=== PATIENT | female | born 2005 | race Caucasian/White ===

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

== ENCOUNTER 2024-05-05 05:39 | Emergency (ER) | payer BC, SELFPAY ==
[2024-05-05 05:58] VITALS: BP 129/75; PULSE 92; RESP 18; TEMP 37.1; O2SAT 99; BMI 27.3
--- NOTE | 2024-05-05 06:12 | DI.RAD.S_ITS ---
PROCEDURE: XR CHEST 2V INDICATIONS: coughing up blood TECHNIQUE: 2 views of the chest were acquired. COMPARISON: None. FINDINGS: Surgical changes and devices: None. Lungs and pleura: Lungs are clear. No pleural effusions or pneumothorax. Mediastinum: Mediastinal contours are normal. Heart size is normal. Bones and chest wall: No suspicious bony abnormalities. Soft tissues appear unremarkable. IMPRESSION: No acute cardiopulmonary abnormality is seen. Agree with preliminary report. Dictated by: Jacob Araya M.D. on 05/05/2024 at 8:20 Approved by: Jacob Araya M.D. on 05/05/2024 at 8:21
[2024-05-05 06:47] VITALS: BP 117/70; PULSE 85; O2SAT 100
[2024-05-05 07:00] VITALS: PULSE 85; O2SAT 100
[2024-05-05 07:30] VITALS: PULSE 81; O2SAT 100
--- NOTE | 2024-05-05 07:33 | PC.NURSE ---
Pt states she was recently in contact with someone who was sick; pt endorses coughing up blood starting last night. Pt endorses vocal cord irritation and post nasal drip.
--- NOTE | 2024-05-05 07:40 | ED_ITS ---
HPI - General Adult General Chief complaint: Shortness of Breath/Dyspnea Stated complaint: coughing up blood Time Seen by Provider: 05/05/24 07:39 Source: patient Mode of arrival: Ambulatory Limitations: no limitations History of Present Illness HPI narrative: This is a 18-year-old female with no reported medical issues who presents with complaint of 5 days of hoarseness, cough and has developed some hemoptysis. Patient describes least 2 episodes and has pictures that show phlegm with some blood mixed in. Patient denies any fevers states he has had little bit of a headache, states has had a pretty persistent cough. No epistaxis. Has a little bit tight in her chest. No chest pain currently. Little bit of shortness of breath. No nausea or vomiting. No syncope. No diarrhea or constipation. No swelling in extremities. Patient states no daily medications. Had tonsillectomy in the last year. No use of tobacco. Patient used inhalers in the past, has had prednisone in the past states she does feel little wheezy. Related Data Home Medications Medication Instructions Recorded Confirmed norethindrone 1 mg-ethinyl 1 tab PO DAILY 04/13/19 04/13/19 estradiol 10 mcg (24)-iron 10 mcg(2) tablet (Lo Loestrin Fe) Previous Rx's Medication Instructions Recorded famotidine 40 mg tablet (Pepcid) 40 mg OR QDAY ##5 09/30/17 albuterol sulfate 90 mcg/actuation 2 puff INH Q4HP PRN #1 ea 11/18/17 aerosol inhaler (Ventolin HFA) amoxicillin 500 mg capsule 500 mg PO BID #20 caps 04/13/19 ondansetron 4 mg disintegrating 4 mg PO Q8H PRN nausea and 07/29/22 tablet vomiting #30 tabs prednisone 10 mg tablets in a dose See Rx Instructions PO .COMPLEX 05/05/24 pack #21 ea Allergies Allergy/AdvReac Type Severity Reaction Status Date / Time No Known Drug Allergies Allergy Verified 04/13/19 12:28 Review of Systems Review of Systems ROS Unobtainable: All systems reviewed & are unremarkable except as noted in HPI and below Patient History Medical History Asthma Social History Smoking Status: Never smoker Smoking Status: Never smoker Substance Use Type: does not use Exam Narrative Exam Narrative: GEN: well nourished, well appearing female, alert and oriented x 3, patient appears to be in mild distress. HEENT: Atraumatic, pupils are equal round reactive to light, extraocular movements are intact, nares mild rhinorrhea, TMs are clear with no fluid, there is no conjunctival pallor. Throat is clear with cobblestoning, no exudates, erythema, tonsillar enlargement or uvular deviation, mild cervical lymphadenopathy. Patient sounds congested. Mild hoarseness. No muffled voice. No difficulty with swallowing her secretions. HEART: Regular rate and rhythm without murmur, clicks, rubs. LUNGS:Lungs clear to auscultation, no wheezes, rales, crackles, chest moves symmetrically, no tachypnea or accessory muscle use ABD:bowel sounds normal, soft, non-tender, no guarding, rebound, rigidity, no masses noted, no hepatosplenomegaly :No CVA tenderness MSCL: Non-tender, no muscle atrophy, muscles strength 5/5 upper and lower extremities, full range of motion, normal gait NEURO:CN 2-12 intact, sensation normal. SKIN: No rash, erythema or other skin changes. Initial Vital Signs Initial Vital Signs: Vital Signs Temperature 98.7 F 05/05/24 05:58 Pulse Rate 92 H 05/05/24 05:58 Respiratory Rate 18 05/05/24 05:58 Blood Pressure 129/75 05/05/24 05:58 Pulse Oximetry 99 05/05/24 05:58 Oxygen Delivery Method Room Air 05/05/24 05:58 Course Orders Ordered: ED Orders 05/05/24 06:12 Chest [XR chest 2V] Stat Vital Signs Vital signs: Vital Signs - 8 hr 05/05/24 05:58 05/05/24 06:47 05/05/24 06:47 Temperature 98.7 F Pulse Rate 92 H 85 Respiratory Rate 18 Blood Pressure 129/75 117/70 Pulse Oximetry 99 100 Oxygen Delivery Method Room Air 05/05/24 07:00 Temperature Pulse Rate 85 Respiratory Rate Blood Pressure Pulse Oximetry 100 Oxygen Delivery Method Medical Decision Making Imaging Data Chest x-ray: Radiologist's Impression: Prelim night read no acute cardiopulmonary disease, normal lung volumes, lungs are clear no pneumothorax or pleural effusion heart size normal no passive venous congestion, no midline shift or tracheal deviation, no acute fracture. MDM Narrative Medical decision making narrative: 18-year-old female with clear respiratory congestion, recent UR size symptoms for the past 5 days who has had small amount of hemoptysis. Patient's lungs are clear. No reported epistaxis. No other inappropriate bleeding, bruising or other skin changes. Discussed with patient suspect this is related to recent illness and likely some irritation to the airways. Chest x-ray is clear. Kyara lima has had some wheezing in the past and has had steroids as well as albuterol before. Discussed differential including PE, other causes versus infection. Patient after discussion feel lab work is not necessary. She defers respiratory panel. Will send script for prednisone patient states they have access to albuterol if needed. Discharge Plan Departure Patient Disposition: Home Clinical Impression: Bronchitis Activity Restrictions/Additional Instructions: Follow up if you are having persistent hemoptysis or coughing up blood. You likely have a viral illness should resolve after 7-10 days. You can take Tylenol and/or ibuprofen for fevers. If you are having wheezing or tightness in her chest take prednisone until completed. Prescription was sent to [facility] in [place] Please return for new or worsening chest pain, shortness of breath, persistent or worsening hemoptysis or coughing up blood, lightheadedness or passing out, vomiting, new swelling of extremities or other new or concerning changes. Prescriptions: New prednisone 10 mg tablets,dose pack See Rx Instructions .ROUTE .COMPLEX Qty: 21 0RF Rx Instructions: 6 tabs p.o. x1 day, then 5 tabs p.o. x1 day, then 4 tablets p.o. x1 day, then 3 tabs p.o. x1 day, then 2 tabs p.o. x1 day, then 1 tab p.o. x1 day No Action Lo Loestrin Fe 1 mg-10 mcg (24)/10 mcg (2) tablet 1 tab PO DAILY amoxicillin 500 mg capsule 500 mg PO BID Qty: 20 0RF famotidine [Pepcid] 40 MG tablet 40 mg OR QDAY Qty: 5 0RF albuterol sulfate [Ventolin HFA] 90 MCG/PUFF HFA aerosol inhaler 2 puff INH Q4HP PRNQty: 1 0RF ondansetron 4 mg tablet,disintegrating 4 mg PO Q8H PRN (Reason: nausea and vomiting) Qty: 30 0RF Referrals: Lis Roberts MD [Primary Care Provider] - Stand Alone Forms: Patient Portal/API
[2024-05-05 07:59] VITALS: BP 118/74; O2SAT 98
[2024-05-05 08:06] VITALS: RESP 16
== END 2024-05-05 08:06 | disposition home or self-care (01) ==
PROVIDERS: Emergency Provider Emergency Medicine; PCP Internal Medicine
DX: J40 Bronchitis, not specified as acute or chronic (principal)
CPT/HCPCS: 71046; 99281; 99283

== ENCOUNTER → 2024-12-08 07:36 | Outpatient (CLI) | payer BC, SELFPAY ==
[2024-12-08 08:00] LABS: Pregnancy Test Urine Negative (Negative)
[2024-12-08 09:26] LABS: Urine N gonorrhoeae NOT DETECTED
[2024-12-08 09:28] LABS: Urine Chlamydia NOT DETECTED
== END ==
PROVIDERS: PCP Internal Medicine; Visit Provider Physician Assistant Surgical
DX: N94.9 Unspecified condition associated with female genital organs and menstrual cycle (principal); N89.8 Other specified noninflammatory disorders of vagina
CPT/HCPCS: 81025; 87210; 87491; 87591